=== PATIENT | male | born 1960 | race Caucasian/White ===

== ENCOUNTER 2021-02-27 12:11 | Outpatient (CLI) | payer OTHER, SELFPAY ==
--- NOTE | ~2021-02-27 | MR_ITS ---
EXAMINATION: MR brain/brain stem wo/w con DATE: 02/27/2021 13:03 INDICATION: Disorientation. TECHNIQUE: Magnetic resonance imaging (MRI) of the brain and brainstem was performed without and with 20 mL MultiHance intravenous contrast. Sequences included sagittal and axial T1-weighted FSE, axial diffusion-weighted FS EPI, axial T2*-weighted GRE, axial T2-weighted FLAIR Propeller, and axial T2-we ighted Propeller. Postcontrast sequences included axial and coronal T1-weighted FSE. Apparent diffusi on coefficient (ADC) maps were created. COMPARISON: None. FINDINGS: There are scattered areas of nonspecific increased T2-weighted signal intensity in the cere bral white matter, which is within normal limits for the patient's age. There is no intracranial hemo rrhage, acute infarction, or abnormal intracranial mass lesion. The ventricles are normal in size. Th ere is mild mucosal thickening in the ethmoid sinuses. The orbits are normal. The mastoid air cells a re normal. IMPRESSION: 1. Normal aging brain. Reviewed, dictated and finalized at location B. IMPRESSION: 1. Normal aging brain.
[2021-02-27 12:41] LABS: Estimated Glomerular Filt Rate > 60
== END 2021-02-27 12:12 ==
PROVIDERS: PCP Family Medicine; Visit Provider Family Medicine
DX: R41.0 Disorientation, unspecified (principal)
CPT/HCPCS: 70553; A9577

== ENCOUNTER 2023-01-11 01:07 | Day surgery (SDC) | payer BC, SELFPAY ==
[2022-12-31 12:03] VITALS: BMI 36.7
--- NOTE | 2023-01-11 10:37 | P.PNAN_ITS ---
Anes - Initial Pre Proc Eval Procedure: Operation Date: 01/11/23 12:30 Proposed Procedures p Screening Colonoscopy - Sunny Simmons MD Date/Time: 01/11/23 10:37 Surgeon: Sunny Simmons MD Pre Op Diagnosis: neoplasm screening, rectal polyp Patient Data Age: 62 Gender: M Height: 1.83 m Weight: 122.75 kg Allergies Allergy/AdvReac Type Severity Reaction Status Date / Time No Known Allergies Allergy Verified 12/31/22 12:03 Home Medications Medication Instructions Recorded Confirmed Type aspirin 325 mg tablet 325 mg PO DAILY 11/14/19 12/31/22 History famotidine 10 mg tablet 10 mg PO DAILY 04/09/20 12/31/22 History atorvastatin 10 mg tablet 10 mg PO DAILY #90 tabs 07/20/22 12/31/22 Rx cephalexin 500 mg capsule 500 mg PO Q8H #30 caps 12/10/22 12/31/22 Rx metronidazole 500 mg tablet 500 mg PO Q8H #30 tabs 12/10/22 12/31/22 Rx metoprolol succinate 25 mg 25 mg PO DAILY #90 tabs 12/24/22 12/31/22 Rx tablet,extended release 24 hr magnesium oxide 400 mg PO DAILY 12/31/22 12/31/22 History Patient hx anesthesia problems: none Family hx anesthesia problems: none Results Review: All pre-operative results and documents have been reviewed as part of the pre- operative evaluation. [facility] Past Medical History Medical History (Updated 01/11/23 @ 10:38 by Yobani Suazo MD) Benign essential HTN Hyperlipidemia Obesity DOUGLAS on CPAP Surgical History Surgical History H/O knee surgery left History of ankle surgery left Family History Family History Father Hypertension Family history of seizure disorder Social History Social History (Updated 12/24/22 @ 10:56 by Peyton Colin MA) Smoking status: Never smoker Smoking end date: 10/18/84 Alcohol intake: current Drinks per week: 5 Alcohol use details: DRINKS Substance use: never Substance use type: does not use Lack of Transportation: YES Lack of Food: Never True Current Housing: I Have Housing Concerned About Future Housing: No Difficulty Paying Gas/Electric Bills: No Difficulty Paying for Meds: No Currently Unemployed: No Education: Bachelor's Degree Difficulty w/ Childcare or Family Care: No Living arrangements: with family Spiritual care concerns: No Anes - Eval Final PreProcedure Day of Procedure 01/11/23 10:37 Patient weight: obese Heart: regular rate and rhythm Lungs: clear to auscultation and normal air movement Airway: Mallampati scale class II Neurological: alert and oriented Last oral intake: >/= 8 hours ASA classification: III Emergent: no Anesthetic plan: proceed Anesthesia type and monitoring: general GIVS Results Review: All pre-operative results and documents have been reviewed as part of the pre- operative evaluation. Informed Consent: The patient's anesthetic plan and its attendant risks and benefits were discussed with the patient/family/POA. Questions were solicited and answers provided to the satisfaction of the patient/family/POA.
[2023-01-11 11:13] VITALS: BP 173/99; PULSE 70; RESP 18; TEMP 36.3; O2SAT 98
--- NOTE | 2023-01-11 11:30 | PM.HPGS ---
History of Present Illness History of Present Illness Consent: Risks, benefits, and alternatives have been discussed and questions answered. Patient agrees to proceed with procedure. Chief complaint: neoplasm screening, rectal polyp Narrative: Rufus Trotter is a 62 year old male Presents for screening colonoscopy. Patient's current weight appetite and bowel movements are normal. He denies any current abdominal pain. He does report having had several bouts of diverticulitis. Most recent 1 1-2 months ago. Patient denies any blood in his stools. Patient reports in 2014 had a benign rectal polyp removed. Patient presents today for follow-up exam. Family history noncontributory. Review of Systems Review of Systems: Review of systems noncontributory. [facility] Past Medical History Medical History (Updated 01/11/23 @ 10:38 by Yobani Suazo MD) Benign essential HTN Hyperlipidemia Obesity DOUGLAS on CPAP Surgical History Surgical History H/O knee surgery left History of ankle surgery left Family History Family History Father Hypertension Family history of seizure disorder Social History Social History (Updated 12/24/22 @ 10:56 by Peyton Colin MA) Smoking status: Never smoker Smoking end date: 10/18/84 Alcohol intake: current Drinks per week: 5 Alcohol use details: DRINKS Substance use: never Substance use type: does not use Lack of Transportation: YES Lack of Food: Never True Current Housing: I Have Housing Concerned About Future Housing: No Difficulty Paying Gas/Electric Bills: No Difficulty Paying for Meds: No Currently Unemployed: No Education: Bachelor's Degree Difficulty w/ Childcare or Family Care: No Living arrangements: with family Spiritual care concerns: No Meds Home Medications and Allergies Home Medications Medication Instructions Recorded Confirmed Type aspirin 325 mg tablet 325 mg PO DAILY 11/14/19 12/31/22 History famotidine 10 mg tablet 10 mg PO DAILY 04/09/20 12/31/22 History atorvastatin 10 mg tablet 10 mg PO DAILY #90 tabs 07/20/22 12/31/22 Rx cephalexin 500 mg capsule 500 mg PO Q8H #30 caps 12/10/22 12/31/22 Rx metronidazole 500 mg tablet 500 mg PO Q8H #30 tabs 12/10/22 12/31/22 Rx metoprolol succinate 25 mg 25 mg PO DAILY #90 tabs 12/24/22 12/31/22 Rx tablet,extended release 24 hr magnesium oxide 400 mg PO DAILY 12/31/22 12/31/22 History Allergies Allergy/AdvReac Type Severity Reaction Status Date / Time No Known Allergies Allergy Verified 12/31/22 12:03 Vital Signs Vital Signs - 24 hr 01/11/23 11:13 Temperature 97.3 F L Pulse Rate 70 Respiratory Rate 18 Blood Pressure 173/99 H Pulse Oximetry 98 Oxygen Delivery Room Air Exam Narrative: Physical exam reveals patient to be alert. Vital signs stable. HEENT exam is unremarkable. Patient is anicteric. Lungs are clear to auscultation and percussion. Heart is without murmur or extra sounds. Abdomen bowel sounds present soft nontender with no organomegaly. Digital external rectal exam is normal. Assessment and Plan Assessment and plan (1) Colon cancer screening: Code(s): Z12.11 - Encounter for screening for malignant neoplasm of colon Status: Acute Assessment and Plan: Patient presents for screening colonoscopy. Patient has a distant history of a colon polyp 9 years ago. Additionally has had bouts of diverticulitis. If patient continues to have recurrent diverticulitis then surgery may need to be considered for resection. Further recommendations may be given after endoscopy to be performed today.
[2023-01-11] MEDS: LACTATED RINGERS 1,000 ML 150 ML IV CONT (11:34)
[2023-01-11 11:47] VITALS: BP 132/88; PULSE 86; RESP 15; O2SAT 97
[2023-01-11 11:57] VITALS: BP 130/86; PULSE 80; RESP 18; O2SAT 100
[2023-01-11 12:07] VITALS: BP 131/93; PULSE 74; RESP 19; O2SAT 96
== END 2023-01-11 12:22 | disposition home or self-care (01) ==
PROVIDERS: PCP Family Medicine; Visit Provider Internal Medicine Gastroenterology
PROC: 0DJD8ZZ Inspection of Lower Intestinal Tract, Via Natural or Artificial Opening Endoscopic (ICD-10-PCS; CPT 45378; principal; 2023-01-11 12:30)
DX: Z12.11 Encounter for screening for malignant neoplasm of colon (principal); K51.40 Inflammatory polyps of colon without complications; K64.8 Other hemorrhoids; K57.32 Diverticulitis of large intestine without perforation or abscess without bleeding; I10 Essential (primary) hypertension; E78.5 Hyperlipidemia, unspecified; G47.33 Obstructive sleep apnea (adult) (pediatric); E66.9 Obesity, unspecified; Z68.36 Body mass index [BMI] 36.0-36.9, adult
CPT/HCPCS: 45385; 88305; J2704; J7120

== ENCOUNTER 2023-07-16 09:24 | Outpatient (CLI) | payer BC, SELFPAY ==
--- NOTE | ~2023-07-16 | NM_ITS ---
EXAMINATION: NM joy stress w perfusion DATE: 07/16/2023 12:16 INDICATION: Unstable angina TECHNIQUE: Rest images were obtained following intravenous administration of 10.2 mCi Tc99m tetrofosm in (Myoview). The patient was infused intravenously with Lexiscan (Regadenoson). Then, 32.7 mCi Tc99m tetrofosmin (Myoview) was administered intravenously, and stress images were obtained. Data was samina nstructed into short axis and horizontal and vertical long axis SPECT images. Gated SPECT images were also obtained. COMPARISON: None. FINDINGS: There is a large region of decreased activity along much of the septal and inferior beebe o n both the rest and stress imaging performed in the supine position. The majority of this region norm alizes on the post stress imaging obtained in the prone position. There is mild residual decreased ac tivity at the mid anteroseptal segments consistent with infarct. No reversible ischemia. There is no rmal left ventricular chamber size, wall motion and ejection fraction. Left ventricular ejection fra ction measures 61%. IMPRESSION: 1. 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 No reversible ischemia. 2. Left ventricular ejection fraction measuring 61%. Reviewed, dictated and finalized at location A. IMPRESSION: 1. 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 No revers ible ischemia. 2. Left ventricular ejection fraction measuring 61%.
--- NOTE | 2023-07-16 10:15 | EST_ITS ---
Patient Info Name: Rufus Trotter Age: 62 years : 1960 Gender: Male Ht: 71 in Wt: 270 lbs BSA: 2.52 m2 HR: 68 bpm BP: 140 / 84 mmHg Heart Rhythm: Left Bundle Branch Block Exam Date: 07/16/2023 11:02 AM Exam Location: [facility] Stress Patient Status: Outpatient Admit Date: 07/16/2023 Staff Ordering Physician: Azeem Gomez MD Attending Provider: Azeem Gomez MD Exercise Technologist: Chel Bunn RDCS Exercise Physician: Papi Gibson DO Exam Type: CA stress joy w NM Study Info A regadenoson stress test was performed. Summary 1. 1. Inconclusive lexiscan stress test for ischemic ST changes by ECG criteria due to baseline LBBB. 2. 2. Baseline hypertension. 3. 3. Nuclear scan to follow and will be reported separately. Please correlate with it. 4. 4. Patient informed of the above results. Protocol: Lexiscan Stress ECG Details Stage: REST Duration (min): 1 min : 18 sec HR (bpm): 68 SBP (mmHg): 140 DBP (mmHg): 84 Stage: REST Duration (min): 8 min : 56 sec HR (bpm): 73 SBP (mmHg): 140 DBP (mmHg): 84 Stage: STAGE 1 Duration (min): 0 min : 59 sec HR (bpm): 97 SBP (mmHg): 155 DBP (mmHg): 68 Stage: RECOVERY Duration (min): 1 min : 0 sec HR (bpm): 99 SBP (mmHg): 155 DBP (mmHg): 68 Stage: RECOVERY Duration (min): 2 min : 0 sec HR (bpm): 83 SBP (mmHg): 155 DBP (mmHg): 68 Stage: RECOVERY Duration (min): 3 min : 0 sec HR (bpm): 91 SBP (mmHg): 152 DBP (mmHg): 69 Stage: RECOVERY Duration (min): 3 min : 4 sec HR (bpm): 90 SBP (mmHg): 152 DBP (mmHg): 69 Rest HR: 73 bpm Peak HR: 101 bpm Rest Sys BP: 140 mmHg Peak Sys BP: 155 mmHg Max Pred HR: 158 bpm % Max Pred HR: 64 % Target HR: 134 bpm Max RPP: 15,655 bpm*mmHg Termination Reason: Completed protocol Cardiac Symptoms: Shortness of breath Total Time: 1 min : 0 sec Rest [place] BP: 84 mmHg Peak [place] BP: 68 mmHg Total Dose: 0.4 mg Resting ECG Sinus rhythm, LBBB. Stress ECG No ST changes. Arrhythmias None. Report Signatures
== END 2023-07-16 09:25 | disposition home or self-care (01) ==
PROVIDERS: PCP Family Medicine; Visit Provider Family Medicine
DX: I20.0 Unstable angina (principal)
CPT/HCPCS: 78452; 93017; A9502; J2785